=== PATIENT | female | born 1995 | race Caucasian/White ===

== ENCOUNTER → 2017-08-07 | Outpatient (REF) | payer MEDICAID | LOC: M LAB REF 17:17 | DX: J02.9 Acute pharyngitis, unspecified (principal) ==

== ENCOUNTER → 2018-05-08 | Outpatient (CLI) | payer MEDICAID ==
[2018-05-08 17:43] LABS: ALBUMIN 3.2 GM/DL (3.2-5.2); ALBUMIN/GLOBULIN RATIO 0.84 (1.00-1.93); ALKALINE PHOSPHATASE 105 U/L (45-117); ALT/SGPT 18 U/L (12-78); ANION GAP 7 MEQ/L (8-16); AST/SGOT 17 U/L (7-37); BILIRUBIN,TOTAL 0.3 MG/DL (0.2-1.0); BLOOD UREA NITROGEN 8 MG/DL (7-18); CALCIUM LEVEL 8.4 MG/DL (8.5-10.1); CARBON DIOXIDE LEVEL 29 MEQ/L (21-32); CHLORIDE LEVEL 103 MEQ/L (98-107); CHOLESTEROL LEVEL 196 MG/DL (<200); CHOLESTEROL RISK RATIO 3.563 (<5); CREATININE FOR GFR 0.74 MG/DL (0.55-1.30); FREE T4 1.01 NG/DL (0.76-1.46); GLOMERULAR FILTRATION RATE > 60.0 (>60); GLUCOSE, FASTING 75 MG/DL (70-100); HDL CHOLESTEROL 55 MG/DL (>40); LDL CHOLESTEROL 118 MG/DL (<100); NON-HDL-C 141 MG/DL; POTASSIUM SERUM 4.3 MEQ/L (3.5-5.1); SODIUM LEVEL 139 MEQ/L (136-145); TRIGLYCERIDES LEVEL 117 MG/DL (<150)
[2018-05-08 17:44] LABS: OSMOLALITY URINE 584 MOSM/KG (500-800)
[2018-05-08 17:50] LABS: ESTRADIOL < 19.0 PG/ML; LUTEINIZING HORMONE 0.2 mIU/mL; TOTAL 25(OH) VITAMIN D 22.1 NG/ML (30.0-100.0)
[2018-05-08 17:51] LABS: FOLLICLE STIMULATING HORMONE 1.1 mIU/mL
[2018-05-08 18:13] LABS: ESTIMATED AVERAGE GLUCOSE 100 MG/DL (60-110); HEMOGLOBIN A1c 5.1 %
[2018-05-11 00:09] LABS: SOMATOMEDIN-C INSULIN GROWTH 122 ng/mL (93-342)
== END ==
LOC: M WUC 10:53
DX: E23.0 Hypopituitarism (principal); E03.8 Other specified hypothyroidism; E27.49 Other adrenocortical insufficiency
CPT/HCPCS: 83001

== ENCOUNTER → 2018-05-21 | Outpatient (CLI) | payer MEDICAID | LOC: M WHC 15:30 | DX: E23.0 Hypopituitarism (principal); E03.8 Other specified hypothyroidism; E27.49 Other adrenocortical insufficiency | CPT/HCPCS: 77080 ==

== ENCOUNTER → 2019-06-18 | Outpatient (CLI) | payer MEDICAID ==
[2019-06-18 11:03] LABS: ALBUMIN 3.6 GM/DL (3.2-5.2); ALT/SGPT 42 U/L (12-78); BILIRUBIN,TOTAL 0.5 MG/DL (0.2-1.0); BLOOD UREA NITROGEN 5 MG/DL (7-18); CALCIUM LEVEL 9.4 MG/DL (8.5-10.1); CARBON DIOXIDE LEVEL 30 MEQ/L (21-32); CHLORIDE LEVEL 101 MEQ/L (98-107); CREATININE FOR GFR 0.69 MG/DL (0.55-1.30); GLOMERULAR FILTRATION RATE > 60.0 (>60); GLUCOSE, FASTING 98 MG/DL (70-100); SODIUM LEVEL 137 MEQ/L (136-145); TOTAL PROTEIN 7.2 GM/DL (6.4-8.2)
== END ==
LOC: M LAB 09:47
PROVIDERS: ATTEND Internal Medicine
DX: R74.0 Nonspecific elevation of levels of transaminase and lactic acid dehydrogenase [LDH] (principal)

== ENCOUNTER → 2020-07-03 | Outpatient (CLI) | payer MEDICAID ==
[2020-07-03 14:40] LABS: HEMOGLOBIN A1c 5.2 %
[2020-07-03 14:47] LABS: BLOOD UREA NITROGEN 8 MG/DL (7-18); CALCIUM LEVEL 9.3 MG/DL (8.5-10.1); CARBON DIOXIDE LEVEL 29 MEQ/L (21-32); CHLORIDE LEVEL 105 MEQ/L (98-107); CREATININE FOR GFR 0.86 MG/DL (0.55-1.30); FREE T4 1.27 NG/DL (0.76-1.46); GLOMERULAR FILTRATION RATE > 60.0 (>60); GLUCOSE, FASTING 96 MG/DL (70-100); POTASSIUM SERUM 3.5 MEQ/L (3.5-5.1); SODIUM LEVEL 140 MEQ/L (136-145)
[2020-07-03 14:51] LABS: TOTAL 25(OH) VITAMIN D 32.4 NG/ML (30.0-100.0)
== END ==
LOC: M PLALAB 09:55
PROVIDERS: ATTEND Internal Medicine Endocrinology, Diabetes & Metabolism
DX: E23.0 Hypopituitarism (principal); Z91.89 Other specified personal risk factors, not elsewhere classified; E55.9 Vitamin D deficiency, unspecified

== ENCOUNTER → 2020-08-15 | Outpatient (CLI) | payer MEDICAID ==
--- NOTE | 2020-08-15 17:38 | DEXAMM ---
INDICATION: OSTEOPENIA. COMPARISON: 05/21/2018, 01/31/2015. TECHNIQUE: Bone density was measured using dual-energy x-ray absorptiometry (DEXA). FINDINGS: AP SPINE L1-L4 BMD 1.059 g/cm2 Young Adult T-Score -1.1 Age Matched Z-Score -1.1. LT FEMUR, TOTAL BMD 0.929 g/cm2 Young Adult T-Score -0.6 Age Matched Z-Score -0.6. LT NECK BMD 0.961 g/cm2 Young Adult T-Score -0.6 Age Matched Z-Score -0.5. RT FEMUR, TOTAL BMD 0.914 g/cm2 Young Adult T-Score -0.7 Age Matched Z-Score -0.7. RT NECK BMD 0.986 g/cm2 Young Adult T-Score -0.4 Age Matched Z-Score -0.3. IMPRESSION: There is low bone density of the spine. There is normal bone density of the left hip. There is normal bone density of the right hip. The density of the spine has decreased 5.2% since the initial exam on 01/31/2015. The density of the spine increased 2.9% since most recent exam on 05/21/2018. The density of the left hip has increased 5.6% since initial exam on 01/31/2015. The density of the left hip has increased 9.3% since most recent exam on 05/21/2018. The density of the right hip has increased 7.5% since the initial exam on 01/31/2015. The density of the right hip has increased 7.5% since the most recent exam on 05/21/2018. FOLLOW-UP: Recommendation for the next bone density exam: 2 years. <Electronically signed by Armand Bejarano > 08/15/20 [id number]
== END ==
LOC: M WHC 13:27
PROVIDERS: ATTEND Internal Medicine Endocrinology, Diabetes & Metabolism
DX: M85.88 Other specified disorders of bone density and structure, other site (principal)

== ENCOUNTER → 2021-02-23 | Outpatient (REF) | payer MEDICAID ==
[2021-02-23 17:37] LABS: BASO % 0.6 % (0.0-1.0); EOS # 0.1 10^3/uL (0.0-0.5); EOS % 1.6 % (0.0-3.0); HEMATOCRIT 44.7 % (36.0-47.0); LYMPH # 0.9 10^3/uL (1.5-5.0); LYMPH % 18.3 % (24.0-44.0); MEAN CORPUSCULAR HEMOGLOBIN 27.5 pg (27.0-33.0); MEAN CORPUSCULAR HGB CONC 33.6 g/dl (32.0-36.5); MEAN CORPUSCULAR VOLUME 81.9 fl (80.0-96.0); MONO # 0.4 10^3/uL (0.0-0.8); MONO % 7.4 % (2.0-8.0); NEUTROPHILS # 3.6 10^3/uL (1.5-8.5); NEUTROPHILS % 71.5 % (36.0-66.0); PLATELET COUNT, AUTOMATED 335 10^3/uL (150-450); RED BLOOD COUNT 5.46 10^6/uL (4.00-5.40)
[2021-02-23 17:59] LABS: ALBUMIN 3.6 GM/DL (3.2-5.2); ALT/SGPT 36 U/L (12-78); BILIRUBIN,DIRECT 0.4 MG/DL (0.0-0.2); BILIRUBIN,TOTAL 1.3 MG/DL (0.2-1.0); BLOOD UREA NITROGEN 10 MG/DL (7-18); CALCIUM LEVEL 8.5 MG/DL (8.5-10.1); CARBON DIOXIDE LEVEL 25 MEQ/L (21-32); CHLORIDE LEVEL 104 MEQ/L (98-107); GLOMERULAR FILTRATION RATE > 60.0 (>60); GLUCOSE, FASTING 99 MG/DL (70-100); LIPASE 47 U/L (73-393); POTASSIUM SERUM 3.6 MEQ/L (3.5-5.1); SODIUM LEVEL 137 MEQ/L (136-145); TOTAL PROTEIN 7.4 GM/DL (6.4-8.2)
== END ==
LOC: M SFHCPLAZ 12:53
PROVIDERS: ATTEND Family Medicine
DX: R50.9 Fever, unspecified (principal)

== ENCOUNTER → 2021-09-05 | Outpatient (REF) | payer MEDICAID ==
[2021-09-05 18:11] LABS: BLOOD UREA NITROGEN 8 MG/DL (7-18); CALCIUM LEVEL 9.2 MG/DL (8.5-10.1); CARBON DIOXIDE LEVEL 28 MEQ/L (21-32); CHLORIDE LEVEL 107 MEQ/L (98-107); CREATININE FOR GFR 0.72 MG/DL (0.55-1.30); FREE T4 1.14 NG/DL (0.76-1.46); GLOMERULAR FILTRATION RATE > 60.0 (>60); GLUCOSE, FASTING 91 MG/DL (70-100); PHOSPHORUS LEVEL 3.8 MG/DL (2.5-4.9); POTASSIUM SERUM 4.4 MEQ/L (3.5-5.1); SODIUM LEVEL 141 MEQ/L (136-145)
[2021-09-05 18:19] LABS: PTH INTACT 46.7 PG/ML (18.5-88.0); TOTAL 25(OH) VITAMIN D 31.7 NG/ML (30.0-100.0)
[2021-09-06 15:11] LABS: MAGNESIUM LEVEL 2.2 MG/DL (1.7-2.2)
== END ==
LOC: M LAB REF 17:17
PROVIDERS: ATTEND Internal Medicine Endocrinology, Diabetes & Metabolism
DX: E23.0 Hypopituitarism (principal); E55.9 Vitamin D deficiency, unspecified; Z91.89 Other specified personal risk factors, not elsewhere classified

== ENCOUNTER → 2021-12-14 | Outpatient (REF) | payer MEDICAID | LOC: M SFHCPLAZ 13:22 | PROVIDERS: ATTEND Physician Assistant | DX: J02.9 Acute pharyngitis, unspecified (principal) ==

== ENCOUNTER → 2022-06-14 | Outpatient (REF) | payer MEDICAID ==
[2022-06-14 17:59] LABS: HEMATOCRIT 42.6 % (36.0-47.0); MEAN CORPUSCULAR HEMOGLOBIN 27.4 pg (27.0-33.0); MEAN CORPUSCULAR HGB CONC 32.9 g/dl (32.0-36.5); MEAN CORPUSCULAR VOLUME 83.4 fl (80.0-96.0); PLATELET COUNT, AUTOMATED 322 10^3/uL (150-450); RED BLOOD COUNT 5.11 10^6/uL (4.00-5.40); WHITE BLOOD COUNT 5.5 10^3/uL (4.0-10.0)
[2022-06-14 19:33] LABS: ALBUMIN 3.4 GM/DL (3.2-5.2); ALT/SGPT 26 U/L (12-78); BILIRUBIN,TOTAL 0.4 MG/DL (0.2-1.0); BLOOD UREA NITROGEN 6 MG/DL (7-18); CALCIUM LEVEL 8.7 MG/DL (8.5-10.1); CARBON DIOXIDE LEVEL 27 MEQ/L (21-32); CHLORIDE LEVEL 101 MEQ/L (98-107); CREATININE FOR GFR 0.76 MG/DL (0.55-1.30); GLOMERULAR FILTRATION RATE > 60.0 (>60); GLUCOSE, FASTING 95 MG/DL (70-100); POTASSIUM SERUM 4.2 MEQ/L (3.5-5.1); SODIUM LEVEL 133 MEQ/L (136-145); TOTAL PROTEIN 7.3 GM/DL (6.4-8.2)
[2022-06-17 09:32] LABS: TOTAL 25(OH) VITAMIN D 35.9 NG/ML (30.0-100.0)
== END ==
LOC: M SFHCPLAZ 16:48
PROVIDERS: ATTEND Nurse Practitioner Adult Health
DX: Z00.00 Encounter for general adult medical examination without abnormal findings (principal); E55.9 Vitamin D deficiency, unspecified

== ENCOUNTER → 2022-09-06 | Outpatient (REF) | payer MEDICAID ==
[2022-09-06 21:40] LABS: BLOOD UREA NITROGEN 9 MG/DL (9-23); CALCIUM LEVEL 9.1 MG/DL (8.5-10.1); CARBON DIOXIDE LEVEL 29 MMOL/L (20-31); CHLORIDE LEVEL 101 MMOL/L (98-107); CREATININE FOR GFR 0.77 MG/DL (0.55-1.30); GLOMERULAR FILTRATION RATE > 60.0 (>60); GLUCOSE, FASTING 95 MG/DL (60-100); POTASSIUM SERUM 3.9 MMOL/L (3.5-5.1); SODIUM LEVEL 138 MMOL/L (136-145)
[2022-09-06 21:43] LABS: FREE T4 1.29 NG/DL (0.89-1.76); TOTAL 25(OH) VITAMIN D 48.4 NG/ML (20.0-100.0)
[2022-09-09 15:17] LABS: THYROID STIMULATING HORMONE 0.027 uIU/ML (0.55-4.78)
== END ==
LOC: M LAB REF 13:15
PROVIDERS: ATTEND Internal Medicine Endocrinology, Diabetes & Metabolism
DX: E23.0 Hypopituitarism (principal)

== ENCOUNTER → 2023-05-14 | Outpatient (REF) | payer OTHER ==
[2023-05-14 18:45] LABS: BLOOD UREA NITROGEN 12 MG/DL (9-23); CALCIUM LEVEL 9.3 MG/DL (8.5-10.1); CARBON DIOXIDE LEVEL 29 MMOL/L (20-31); CHLORIDE LEVEL 102 MMOL/L (98-107); CREATININE FOR GFR 0.75 MG/DL (0.55-1.30); GLOMERULAR FILTRATION RATE > 60.0 (>60); GLUCOSE, FASTING 89 MG/DL (60-100); POTASSIUM SERUM 4.4 MMOL/L (3.5-5.1); SODIUM LEVEL 136 MMOL/L (136-145)
[2023-05-14 18:48] LABS: HEMOGLOBIN A1c 4.3 % (4.0-6.0)
== END ==
LOC: M LABDRAWC 17:40 → M LAB REF 17:40
DX: E23.0 Hypopituitarism (principal)

== ENCOUNTER → 2023-05-14 | Outpatient (CLI) | payer MEDICAID | LOC: M WHC 14:56 | PROVIDERS: ATTEND Internal Medicine Endocrinology, Diabetes & Metabolism | DX: E23.0 Hypopituitarism (principal) ==

== ENCOUNTER → 2023-08-28 | Outpatient (REF) | payer OTHER, MEDICAID ==
[2023-08-28 14:16] LABS: BASO % 0.6 % (0.0-1.0); EOS # 0.1 10^3/uL (0.0-0.5); EOS % 1.8 % (0.0-3.0); HEMATOCRIT 39.4 % (36.0-47.0); HEMOGLOBIN 13.3 g/dl (12.0-15.5); LYMPH # 2.3 10^3/uL (1.5-5.0); LYMPH % 32.1 % (24.0-44.0); MEAN CORPUSCULAR HEMOGLOBIN 27.7 pg (27.0-33.0); MEAN CORPUSCULAR HGB CONC 33.8 g/dl (32.0-36.5); MEAN CORPUSCULAR VOLUME 82.1 fl (80.0-96.0); MONO # 0.4 10^3/uL (0.0-0.8); NEUTROPHILS # 4.2 10^3/uL (1.5-8.5); NEUTROPHILS % 58.8 % (36.0-66.0); PLATELET COUNT, AUTOMATED 389 10^3/uL (150-450); WHITE BLOOD COUNT 7.1 10^3/uL (4.0-10.0)
[2023-08-28 14:38] LABS: VITAMIN B12 LEVEL 916 PG/ML (211-911)
[2023-08-28 14:39] LABS: ALBUMIN 3.2 G/DL (3.2-5.2); ALKALINE PHOSPHATASE 107 U/L (46-116); ALT/SGPT 24 U/L (7.0-40); AST/SGOT 14 U/L (<34); BILIRUBIN,TOTAL 0.5 MG/DL (0.3-1.2); BLOOD UREA NITROGEN 9 MG/DL (9-23); CALCIUM LEVEL 8.8 MG/DL (8.5-10.1); CARBON DIOXIDE LEVEL 32 MMOL/L (20-31); CHLORIDE LEVEL 103 MMOL/L (98-107); CREATININE FOR GFR 0.93 MG/DL (0.55-1.30); GLOMERULAR FILTRATION RATE > 60.0 (>60); GLUCOSE, FASTING 73 MG/DL (60-100); IRON (FE) 43 UG/DL (50-170); PERCENT SATURATION 14.9 % (13.2-45.0); POTASSIUM SERUM 4.2 MMOL/L (3.5-5.1); SODIUM LEVEL 139 MMOL/L (136-145); TOTAL 25(OH) VITAMIN D 53.4 NG/ML (20.0-100.0); TOTAL IRON BINDING CAPACITY 289 UG/DL (250-425); TOTAL PROTEIN 6.7 G/DL (5.7-8.2)
[2023-08-28 14:40] LABS: THYROID STIMULATING HORMONE 0.046 uIU/ML (0.55-4.78)
== END ==
LOC: M LAB REF 13:18
PROVIDERS: ATTEND Internal Medicine Endocrinology, Diabetes & Metabolism
DX: M81.0 Age-related osteoporosis without current pathological fracture (principal); R53.83 Other fatigue

== ENCOUNTER → 2024-05-18 | Outpatient (REF) | payer MEDICAID, OTHER ==
[2024-05-18 13:50] LABS: HEMOGLOBIN 14.7 g/dl (12.0-15.5); MEAN CORPUSCULAR HEMOGLOBIN 27.5 pg (27.0-33.0); MEAN CORPUSCULAR HGB CONC 34.2 g/dl (32.0-36.5); MEAN CORPUSCULAR VOLUME 80.4 fl (80.0-96.0); PLATELET COUNT, AUTOMATED 324 10^3/uL (150-450); RED BLOOD COUNT 5.35 10^6/uL (4.00-5.40); WHITE BLOOD COUNT 7.6 10^3/uL (4.0-10.0)
[2024-05-18 13:56] LABS: ALBUMIN 3.6 G/DL (3.2-5.2); ALKALINE PHOSPHATASE 119 U/L (46-116); ALT/SGPT 25 U/L (7.0-40); AST/SGOT 18 U/L (<34); BILIRUBIN,TOTAL 0.5 MG/DL (0.3-1.2); BLOOD UREA NITROGEN 8 MG/DL (9-23); CALCIUM LEVEL 9.7 MG/DL (8.5-10.1); CARBON DIOXIDE LEVEL 30 MMOL/L (20-31); CHLORIDE LEVEL 101 MMOL/L (98-107); GLOMERULAR FILTRATION RATE > 60.0 (>60); GLUCOSE, FASTING 76 MG/DL (60-100); POTASSIUM SERUM 3.8 MMOL/L (3.5-5.1); SODIUM LEVEL 137 MMOL/L (136-145); TOTAL PROTEIN 7.6 G/DL (5.7-8.2)
[2024-05-18 13:57] LABS: TOTAL 25(OH) VITAMIN D 39.7 NG/ML (20.0-100.0)
== END ==
LOC: M PLALAB 13:03
PROVIDERS: ATTEND Nurse Practitioner Adult Health
DX: Z00.00 Encounter for general adult medical examination without abnormal findings (principal); E55.9 Vitamin D deficiency, unspecified

== ENCOUNTER → 2024-05-18 | Outpatient (REF) | payer MEDICAID, OTHER | LOC: M PLALAB 13:02 | PROVIDERS: ATTEND Student in an Organized Health Care Education/Training Program | DX: M81.0 Age-related osteoporosis without current pathological fracture (principal) ==

== ENCOUNTER → 2025-04-27 | Outpatient (REF) | payer MEDICAID ==
[2025-04-27 19:14] LABS: FREE T4 1.36 NG/DL (0.89-1.76)
[2025-04-27 19:15] LABS: TOTAL 25(OH) VITAMIN D 52.3 NG/ML (20.0-100.0)
[2025-04-27 19:19] LABS: CALCIUM LEVEL 9.3 MG/DL (8.5-10.1); CARBON DIOXIDE LEVEL 29.0 MMOL/L (20-31); CHLORIDE LEVEL 102.0 MMOL/L (98-107); CREATININE FOR GFR 0.92 MG/DL (0.55-1.30); GLOMERULAR FILTRATION RATE 85.4 (>60); PHOSPHORUS LEVEL 3.6 MG/DL (2.5-4.9); POTASSIUM SERUM 3.8 MMOL/L (3.5-5.1); SODIUM LEVEL 138.0 MMOL/L (136-145)
== END ==
LOC: M LAB REF 18:51
PROVIDERS: ATTEND Student in an Organized Health Care Education/Training Program
DX: E23.0 Hypopituitarism (principal)